=== PATIENT | male | born 1990 | race Caucasian/White ===

== ENCOUNTER 2017-02-20 21:39 | Emergency (ER) | payer BC, MEDICAID, OTHER ==
[2017-02-20] MEDS ORDERED: LORazepam 2 MG/ML SDV IVPUSH ONE (22:02)
[2017-02-20] MEDS ORDERED: Sodium Chloride 0.9% 10 ML Syringe FLUSH PRN (22:02)
--- NOTE | 2017-02-20 22:04 | EDM.PDOC ---
ED HPI GENERAL MEDICAL PROBLEM - General Chief Complaint: General Stated Complaint: chest pain sob Time Seen by Provider: 02/20/17 22:00 Source of Information: Reports: Patient, RN Notes Reviewed - History of Present Illness INITIAL COMMENTS - FREE TEXT/NARRATIVE: 26-year-old male presents to the ED with chest pain, palpitations upper abdominal discomfort. He states he smoked about 7 hits of meth this evening and is worried that it may have been laced with fentanyl or ketamine or something like that. He seems quite paranoid. He is afraid he is going to . He states a friend gave him some water to drink and it was "cloudy" so he is worried that there "could've been something in the water". He also did smoke some marijuana this evening. He has been binging on meth for about the last 4 days. He was able to finally get to sleep sometime early this past morning and then did sleep until about noon today. States she did not use any meth until about 7: 00 this evening which would be about 3 hours ago. He has not been vomiting. He denies injecting anything IV. He denies any alcohol intake. He does drink a lot of caffeine with soda and also energy drinks. chest Pain Score (Numeric/FACES): 5 - Related Data Allergies Allergy/AdvReac Type Severity Reaction Status Date / Time No Known Allergies Allergy Verified 02/20/17 21:49 Home Meds: Home Meds . [No Known Home Meds] 05/24/13 [History] Past Medical History - Past Health History Medical/Surgical History: Denies Medical/Surgical History Social & Family History - Family History Family Medical History: Noncontributory - Tobacco Use Smoking Status *Q: Current Every Day Smoker Years of Tobacco use: 5 Packs/Tins Daily: 0.5 Used Tobacco, but Quit: Yes Month Tobacco Last Used: unknown Second Hand Smoke Exposure: No - Caffeine Use Caffeine Use: Reports: Coffee, Soda - Alcohol Use Days Per Week of Alcohol Use: n,one - Recreational Drug Use Recreational Drug Use: Yes Drug Use in Last 12 Months: Yes Recreational Drug Type: Reports: Marijuana/Hashish, Methamphetamine Recreational Drug Use Frequency: Daily ED ROS GENERAL - Review of Systems Review Of Systems: See Below Constitutional: Denies: Fever, Chills, Diaphoresis HEENT: Denies: Throat Pain Respiratory: Denies: Shortness of Breath, Wheezing, Pleuritic Chest Pain Cardiovascular: Reports: Chest Pain (Chest feels tight) GI/Abdominal: Reports: Abdominal Pain (Upper mid abdomen). Denies: Nausea, Vomiting Skin: Denies: Rash Neurological: Reports: Dizziness (Mild) Psychiatric: Reports: Anxiety ED EXAM, GENERAL - Physical Exam Exam: See Below General Appearance: Alert, Anxious Eye Exam: Bilateral Eye: PERRL Throat/Mouth: Normal Inspection Neck: Supple Respiratory/Chest: No Respiratory Distress, Respiratory Distress (Mild tachypnea ) Cardiovascular: Tachycardia GI/Abdominal: Soft, Tender. No: Guarding, Rebound Back Exam: Normal Inspection Extremities: Normal Inspection, Normal Range of Motion Neurological: Alert, Oriented, No Motor/Sensory Deficits Psychiatric: Anxious Skin Exam: Warm, Dry, Normal Color Course - Vital Signs Last Recorded V/S: Last Vital Signs Temp 97.8 F 02/20/17 21:46 Pulse 123 H 02/20/17 21:46 Resp 24 H 02/20/17 21:46 BP 158/104 H 02/20/17 21:46 Pulse Ox 100 02/20/17 21:46 - Orders/Labs/Meds Orders: Active Orders 24 hr Category Date Time Status EKG 12 Lead [EKG Documentation Completion] [RC] STAT Care 02/20/17 22:01 Active Peripheral IV Care [RC] . DIRECTED Care 02/20/17 22:02 Active Sodium Chloride 0.9% [Normal Saline] 1,000 ml Med 02/20/17 22:15 Active IV ONETIME Sodium Chloride 0.9% [Normal Saline] 1,000 ml Med 02/21/17 00:05 Active IV ONETIME Sodium Chloride 0.9% [Saline Flush] Med 02/20/17 22:02 Active 10 ml FLUSH ASDIRECTED PRN Peripheral IV Insertion Adult [OM.PC] Stat Oth 02/20/17 22:02 Ordered Medication Orders Sodium Chloride (Normal Saline) 1,000 mls @ 999 mls/hr IV ONETIME [facility] Last Admin: 02/20/17 22:22 Dose: 999 mls/hr Sodium Chloride (Normal Saline) 1,000 mls @ 500 mls/hr IV ONETIME ONE Stop: 02/21/17 02:04 Last Admin: 02/21/17 00:10 Dose: 500 mls/hr Sodium Chloride (Saline Flush) 10 ml FLUSH ASDIRECTED PRN PRN Reason: Keep Vein Open Last Admin: 02/20/17 22:23 Dose: 10 ml Labs: Laboratory Tests 02/20/17 02/20/17 02/21/17 Range/Units 22:15 22:15 01:25 WBC 11.84 H (4.23-9.07) K/mm3 RBC 5.75 (4.63-6.08) M/mm3 Hgb 17.3 (13.7-17.5) gm/L Hct 49.5 (40.1-51.0) % MCV 86.1 (79.0-92.2) fl MCH 30.1 (25.7-32.2) pg MCHC 34.9 (32.2-35.5) g/dl RDW Std Deviation 39.8 (35.1-43.9) fL Plt Count 247 (163-337) K/mm3 MPV 9.7 (9.4-12.3) fl Neut % (Auto) 68.2 H (34.0-67.9) % Lymph % (Auto) 23.9 (21.8-53.1) % [place] % (Auto) 6.8 (5.3-12.2) % Eos % (Auto) 0.7 L (0.8-7.0) Baso % (Auto) 0.2 (0.1-1.2) % Neut # (Auto) 8.08 H (1.78-5.38) K/mm3 Lymph # (Auto) 2.83 (1.32-3.57) K/mm3 [place] # (Auto) 0.81 (0.30-0.82) K/mm3 Eos # (Auto) 0.08 (0.04-0.54) K/mm3 Baso # (Auto) 0.02 (0.01-0.08) K/mm3 Sodium 144 (136-145) mEq/L Potassium 3.5 (3.5-5.1) mEq/L Chloride 106 (98-107) mEq/L Carbon Dioxide 28 (21-32) mEq/L Anion Gap 13.5 (5-15) BUN 16 (7-18) mg/dL Creatinine 1.2 (0.7-1.3) mg/dL Est Cr Clr Drug Dosing 96.32 mL/min Estimated GFR (MDRD) > 60 (>60) mL/min BUN/Creatinine Ratio 13.3 L (14-18) Glucose 108 H (74-106) mg/dL Calcium 9.6 (8.5-10.1) mg/dL Total Bilirubin 0.5 (0.2-1.0) mg/dL AST 16 (15-37) U/L ALT 32 (16-63) U/L Alkaline Phosphatase 55 (46-116) U/L Total Protein 8.4 H (6.4-8.2) g/dl Albumin 4.5 (3.4-5.0) g/dl Globulin 3.9 gm/dL Albumin/Globulin Ratio 1.2 (1-2) Urine Opiates Screen Negative (NEGATIVE) Ur Buprenorphine Scrn Negative (NEGATIVE) Ur Oxycodone Screen Negative (NEGATIVE) Urine Methadone Screen Negative (NEGATIVE) Ur Propoxyphene Screen Negative (NEGATIVE) Ur Barbiturates Screen Negative (NEGATIVE) Ur Tricyclics Screen Negative (NEGATIVE) Ur Phencyclidine Scrn Negative (NEGATIVE) Ur Amphetamine Screen Presumptive positive H (NEGATIVE) U Methamphetamines Scrn Presumptive positive H (NEGATIVE) U Benzodiazepines Scrn Presumptive positive H (NEGATIVE) U Cocaine Metab Screen Negative (NEGATIVE) U Marijuana (THC) Screen Presumptive positive H (NEGATIVE) Ethyl Alcohol 0.00 (0.00) gm% Meds: Medications Generic Name Dose Route Start Last Admin Trade Name Freq PRN Reason Stop Dose Admin Sodium Chloride 1,000 mls @ 999 mls/hr 02/20/17 22:15 02/20/17 22:22 Normal Saline IV 999 mls/hr ONETIME CRISTINA Administration Sodium Chloride 1,000 mls @ 500 mls/hr 02/21/17 00:05 02/21/17 00:10 Normal Saline IV 02/21/17 02:04 500 mls/hr ONETIME ONE Administration Sodium Chloride 10 ml 02/20/17 22:02 02/20/17 22:23 Saline Flush FLUSH 10 ml ASDIRECTED PRN Administration Keep Vein Open Discontinued Medications Generic Name Dose Route Start Last Admin Trade Name Freq PRN Reason Stop Dose Admin Lorazepam 1 mg 02/20/17 22:02 02/20/17 22:22 Ativan IVPUSH 02/20/17 22:03 1 mg ONETIME ONE Administration - Re-Assessments/Exams Free Text/Narrative Re-Assessment/Exam: 02/21/17 02:00. Have been waiting for patient to void to obtain urine drug screen. He finally did void about 45 minutes ago. Urine drug screen is back positive for meth, amphetamines and marijuana and benzodiazepine as expected. He did start relaxing after we gave him Ativan 1 mg IV. He has been sleeping intermittently now for the past couple of hours. We've given 2 L of fluid IV. Heart rate has been running in the 90s most of the time and occasionally up into the low 100s. No ectopy. Other vitals have been stable. He is now been with us for observation and treatment for over 4 hours. Will discharge home at this time. Departure - Departure Time of Disposition: 02:00 Disposition: Home, Self-Care 01 Condition: Fair Clinical Impression: Atypical chest pain, Anxiety, Drug usage - Discharge Information Referrals: PCP,None [Primary Care Provider] - Forms: ED Department Discharge Additional Instructions: avoid further street drugs. Drink plenty of water to maintain hydration. Follow up [facility] if you decide to to obtain counseling help for stress, anxiety, or drug usage. Follow up clinic as needed, return to ED as needed. - My Orders Last 24 Hours: My Active Orders 02/20/17 22:01 EKG 12 Lead [EKG Documentation Completion] [RC] STAT 02/20/17 22:02 Peripheral IV Care [RC] . DIRECTED Sodium Chloride 0.9% [Saline Flush] 10 ml FLUSH ASDIRECTED PRN Peripheral IV Insertion Adult [OM.PC] Stat 02/20/17 22:15 Sodium Chloride 0.9% [Normal Saline] 1,000 ml IV ONETIME 02/21/17 00:05 Sodium Chloride 0.9% [Normal Saline] 1,000 ml IV ONETIME - Assessment/Plan Last 24 Hours: My Active Orders 02/20/17 22:01 EKG 12 Lead [EKG Documentation Completion] [RC] STAT 02/20/17 22:02 Peripheral IV Care [RC] . DIRECTED Sodium Chloride 0.9% [Saline Flush] 10 ml FLUSH ASDIRECTED PRN Peripheral IV Insertion Adult [OM.PC] Stat 02/20/17 22:15 Sodium Chloride 0.9% [Normal Saline] 1,000 ml IV ONETIME 02/21/17 00:05 Sodium Chloride 0.9% [Normal Saline] 1,000 ml IV ONETIME
[2017-02-20] MEDS ORDERED: Sodium Chloride 0.9% 1,000 ML IV SCH (22:15)
[2017-02-21] MEDS ORDERED: Sodium Chloride 0.9% 1,000 ML IV ONE (00:05)
[2017-02-21 02:22] VITALS: BP 128/75
== END 2017-02-21 02:10 | disposition home or self-care (01) ==
LOC: JD.ED 21:39
DX: F15.980 Other stimulant use, unspecified with stimulant-induced anxiety disorder (principal); R07.89 Other chest pain; F17.210 Nicotine dependence, cigarettes, uncomplicated
CPT/HCPCS: 36415; 80053; 80306; 85025; 93005; 96361; 96374; 99285; G0480; J2060; J7040; J7050; 99284

== ENCOUNTER 2017-03-23 12:42 | Emergency (ER) | payer SELFPAY ==
[2017-03-23 13:02] VITALS: BP 175/115
[2017-03-23] MEDS ORDERED: LORazepam 2 MG/ML MDV IVPUSH ONE (13:17)
--- NOTE | 2017-03-23 13:17 | EDM.PDOC ---
ED HPI GENERAL MEDICAL PROBLEM - General Chief Complaint: Chemical Exposure Stated Complaint: POSS. ANTIFREEZE INGESTION Time Seen by Provider: 03/23/17 13:17 Source of Information: Reports: Patient History Limitations: Reports: No Limitations - History of Present Illness INITIAL COMMENTS - FREE TEXT/NARRATIVE: 36-year-old male presents the ED concerned that he may have been accidentally poisoned by antifreeze. He states someone that he's been partying with may have had antifreeze in a Gatorade bottle. Is very worried and apprehensive that he might of accidentally been poisoned. If this occurred occurred about 48 hours ago. Patient states he's been on a methamphetamine binge for about 3 days. Last use was about 24 hours ago. He states he slept one night out of the last 4. He states he thinks he's been eating fairly well. Denies any nausea vomiting abdominal cramping pain. Patient is quite apprehensive that time of my exam. Onset: Unknown/Unsure (Possible ingestion 48 hours ago.) Onset Date: 03/21/17 (This occurred while high on methamphetamines.) Duration: Day(s): Location: Reports: Other Severity: Moderate (Feeling anxious at this time.) Improves with: Reports: None Worsens with: Reports: Other (Feels worsened by concerned that he may have been poisoned by) Context: Reports: Other (Possible accidental ingestion of antifreeze.). Denies : Activity, Exercise, Lifting, Sick Contact, Trauma Associated Symptoms: Reports: No Other Symptoms. Denies: Confusion, Chest Pain , Cough, cough w sputum, Diaphoresis, Fever/Chills, Headaches, Loss of Appetite , Malaise, Nausea/Vomiting, Rash, Seizure, Shortness of Breath, Syncope, Weakness Treatments [employer]ATOR: Reports: Other (see below) (None.) Chest Pain Score (Numeric/FACES): 3 - Related Data Allergies Allergy/AdvReac Type Severity Reaction Status Date / Time No Known Allergies Allergy Verified 03/23/17 12:58 Home Meds: Home Meds . [No Known Home Meds] 05/24/13 [History] Past Medical History - Past Health History Medical/Surgical History: Denies Medical/Surgical History Social & Family History - Family History Family Medical History: Noncontributory - Tobacco Use Smoking Status *Q: Current Every Day Smoker Years of Tobacco use: 5 Packs/Tins Daily: 0.5 Used Tobacco, but Quit: Yes Month Tobacco Last Used: unknown Second Hand Smoke Exposure: No - Caffeine Use Caffeine Use: Reports: Coffee, Soda - Alcohol Use Days Per Week of Alcohol Use: n,one - Recreational Drug Use Recreational Drug Use: Yes Drug Use in Last 12 Months: Yes Recreational Drug Type: Reports: Marijuana/Hashish, Methamphetamine (Admits to 3 day use of methamphetamines. Last use was about 24 hours ago) Recreational Drug Use Frequency: Daily ED ROS GENERAL - Review of Systems Review Of Systems: See Below Constitutional: Reports: Malaise, Weakness, Fatigue, Decreased Appetite, Weight Loss. Denies: Fever, Chills HEENT: Reports: No Symptoms Respiratory: Reports: No Symptoms Cardiovascular: Reports: Blood Pressure Problem (Blood pressure is elevated at the time of exam but not known to have hypertension), Palpitations (Times) Endocrine: Reports: Fatigue GI/Abdominal: Denies: Abdominal Pain, Anorexia, Black Stool, Bloody Stool, Constipation, Diarrhea, Decreased Appetite, Difficulty Swallowing, Distension, Flatus, Hematemesis, Hematochezia, Melena, Nausea, Stool Incontinence, Vomiting : Reports: No Symptoms Musculoskeletal: Reports: No Symptoms Skin: Reports: No Symptoms Neurological: Reports: No Symptoms Psychiatric: Reports: No Symptoms Hematologic/Lymphatic: Reports: No Symptoms Immunologic: Reports: No Symptoms ED EXAM, BURN/SMOKE INHALATION - Physical Exam Exam: See Below Exam Limited By: No Limitations General Appearance: Alert, WD/WN, Anxious (Obviously anxious but is able to answer all questions quite appropriately makes good eye contact. You can tell that he is under the influence of drugs.), Mild Distress Eye Exam: Bilateral Eye: Normal Inspection Mouth/Throat: Other (Tongue is mildly dry and coated. Teeth are in need of a dentist) Head: No Symptoms, Atraumatic Neck: No Symptoms Respiratory: Lungs Clear, Normal Breath Sounds, No Accessory Muscle Use, Chest Non-Tender (Mildly tachypnea could rest 20-22/m), Decreased Breath Sounds Cardiovascular: No Edema (Mildly tachycardic at rest 114-1 20/m.), No Gallop, No Murmur, No Rub, Tachycardia Peripheral Pulses: 3+: Posterior Tibial (L), Posterior Tibial (R), Dorsalis Pedis (L), Dorsalis Pedis (R) GI/Abdominal: Normal Bowel Sounds, Soft, Non-Tender, No Organomegaly, No Abnormal Bruit, No Mass, Other (No scars.) (Male) Exam: No Hernia Extremities: Normal Inspection, Normal Range of Motion, Non-Tender, No Pedal Edema Neurological: Alert, Oriented, CN II-XII Intact, Normal Cognition, Normal Gait, No Motor/Sensory Deficits Psychiatric: Normal Affect, Normal Mood Skin Exam: Warm, Dry, Intact, Normal Color, No Rash Course - Vital Signs Last Recorded V/S: Last Vital Signs Temp 36.3 C 03/23/17 12:58 Pulse 114 H 03/23/17 12:58 Resp 20 03/23/17 12:58 BP 175/115 H 03/23/17 12:58 Pulse Ox 100 03/23/17 12:58 - Orders/Labs/Meds Labs: Laboratory Tests 03/23/17 03/23/17 03/23/17 Range/Units 13:14 13:14 14:15 WBC 7.54 (4.23-9.07) K/mm3 RBC 5.24 (4.63-6.08) M/mm3 Hgb 15.9 (13.7-17.5) gm/L Hct 44.8 (40.1-51.0) % MCV 85.5 (79.0-92.2) fl MCH 30.3 (25.7-32.2) pg MCHC 35.5 (32.2-35.5) g/dl RDW Std Deviation 37.8 (35.1-43.9) fL Plt Count 203 (163-337) K/mm3 MPV 10.5 (9.4-12.3) fl Neutrophils % (Manual) 62 H (40-60) % Band Neutrophils % 0 (0-10) % Lymphocytes % (Manual) 36 (20-40) % Atypical Lymphs % 0 % Monocytes % (Manual) 2 (2-10) % Eosinophils % (Manual) 0 L (0.8-7.0) % Basophils % (Manual) 0 L (0.2-1.2) Platelet Estimate Adequate RBC Morph Comment Normal Sodium 141 (136-145) mEq/L Potassium 3.5 (3.5-5.1) mEq/L Chloride 104 (98-107) mEq/L Carbon Dioxide 26 (21-32) mEq/L Anion Gap 14.5 (5-15) BUN 16 (7-18) mg/dL Creatinine 1.2 (0.7-1.3) mg/dL Est Cr Clr Drug Dosing 99.35 mL/min Estimated GFR (MDRD) > 60 (>60) mL/min BUN/Creatinine Ratio 13.3 L (14-18) Glucose 95 (74-106) mg/dL Calcium 9.6 (8.5-10.1) mg/dL Total Bilirubin 0.4 (0.2-1.0) mg/dL AST 18 (15-37) U/L ALT 29 (16-63) U/L Alkaline Phosphatase 49 (46-116) U/L Total Protein 8.0 (6.4-8.2) g/dl Albumin 4.4 (3.4-5.0) g/dl Globulin 3.6 gm/dL Albumin/Globulin Ratio 1.2 (1-2) Urine Color Yellow (Yellow) Urine Appearance Clear (Clear) Urine pH 7.0 (5.0-8.0) Ur Specific [place] 1.015 (1.005-1.030) Urine Protein Negative (Negative) Urine Glucose (UA) Negative (Negative) Urine Ketones Negative (Negative) Urine Occult Blood Negative (Negative) Urine Nitrite Negative (Negative) Urine Bilirubin Negative (Negative) Urine Urobilinogen 0.2 (0.2-1.0) Ur Leukocyte Esterase Negative (Negative) Urine RBC Not seen (0-5) /hpf Urine WBC Not seen (0-5) /hpf Ur Epithelial Cells Not seen (0-5) /hpf Urine Bacteria Not seen (FEW) /hpf Urine Mucus Not seen (FEW) /hpf Urine Opiates Screen (NEGATIVE) Ur Buprenorphine Scrn (NEGATIVE) Ur Oxycodone Screen (NEGATIVE) Urine Methadone Screen (NEGATIVE) Ur Propoxyphene Screen (NEGATIVE) Ur Barbiturates Screen (NEGATIVE) Ur Tricyclics Screen (NEGATIVE) Ur Phencyclidine Scrn (NEGATIVE) Ur Amphetamine Screen (NEGATIVE) U Methamphetamines Scrn (NEGATIVE) U Benzodiazepines Scrn (NEGATIVE) U Cocaine Metab Screen (NEGATIVE) U Marijuana (THC) Screen (NEGATIVE) 03/23/17 Range/Units 14:15 WBC (4.23-9.07) K/mm3 RBC (4.63-6.08) M/mm3 Hgb (13.7-17.5) gm/L Hct (40.1-51.0) % MCV (79.0-92.2) fl MCH (25.7-32.2) pg MCHC (32.2-35.5) g/dl RDW Std Deviation (35.1-43.9) fL Plt Count (163-337) K/mm3 MPV (9.4-12.3) fl Neutrophils % (Manual) (40-60) % Band Neutrophils % (0-10) % Lymphocytes % (Manual) (20-40) % Atypical Lymphs % % Monocytes % (Manual) (2-10) % Eosinophils % (Manual) (0.8-7.0) % Basophils % (Manual) (0.2-1.2) Platelet Estimate RBC Morph Comment Sodium (136-145) mEq/L Potassium (3.5-5.1) mEq/L Chloride (98-107) mEq/L Carbon Dioxide (21-32) mEq/L Anion Gap (5-15) BUN (7-18) mg/dL Creatinine (0.7-1.3) mg/dL Est Cr Clr Drug Dosing mL/min Estimated GFR (MDRD) (>60) mL/min BUN/Creatinine Ratio (14-18) Glucose (74-106) mg/dL Calcium (8.5-10.1) mg/dL Total Bilirubin (0.2-1.0) mg/dL AST (15-37) U/L ALT (16-63) U/L Alkaline Phosphatase (46-116) U/L Total Protein (6.4-8.2) g/dl Albumin (3.4-5.0) g/dl Globulin gm/dL Albumin/Globulin Ratio (1-2) Urine Color (Yellow) Urine Appearance (Clear) Urine pH (5.0-8.0) Ur Specific [place] (1.005-1.030) Urine Protein (Negative) Urine Glucose (UA) (Negative) Urine Ketones (Negative) Urine Occult Blood (Negative) Urine Nitrite (Negative) Urine Bilirubin (Negative) Urine Urobilinogen (0.2-1.0) Ur Leukocyte Esterase (Negative) Urine RBC (0-5) /hpf Urine WBC (0-5) /hpf Ur Epithelial Cells (0-5) /hpf Urine Bacteria (FEW) /hpf Urine Mucus (FEW) /hpf Urine Opiates Screen Negative (NEGATIVE) Ur Buprenorphine Scrn Negative (NEGATIVE) Ur Oxycodone Screen Negative (NEGATIVE) Urine Methadone Screen Negative (NEGATIVE) Ur Propoxyphene Screen Negative (NEGATIVE) Ur Barbiturates Screen Negative (NEGATIVE) Ur Tricyclics Screen Negative (NEGATIVE) Ur Phencyclidine Scrn Negative (NEGATIVE) Ur Amphetamine Screen Presumptive positive H (NEGATIVE) U Methamphetamines Scrn Presumptive positive H (NEGATIVE) U Benzodiazepines Scrn Negative (NEGATIVE) U Cocaine Metab Screen Negative (NEGATIVE) U Marijuana (THC) Screen Presumptive positive H (NEGATIVE) Meds: Medications Discontinued Medications Generic Name Dose Route Start Last Admin Trade Name Freq PRN Reason Stop Dose Admin Dextrose/Sodium Chloride 1,000 mls @ 999 mls/hr 03/23/17 13:30 03/23/17 13:34 Dextrose 5%-Normal Saline IV 999 mls/hr ASDIRECTED CRISTINA Administration Lorazepam 1.5 mg 03/23/17 13:17 03/23/17 13:52 Ativan IVPUSH 03/23/17 13:18 Not Given ONETIME ONE - Radiology Interpretation Free Text/Narrative:: 26-year-old male presents the ED with concerns he may have been accidentally poisoned by ethylene glycol. He states that apparently was in some Gatorade bottles that were at his friend's house . He has been using a lot of methamphetamines over the last 3-4 days with last use 24 hours ago. Came to his attention that he may have been accidentally poisoned by this medication is very anxious in this regard. He has no abdominal pain no nausea or vomiting which would occurred if he had significant ingestion. Patient is still under the influence of methamphetamine with essential tremor and signs of anxiety with tachycardia at rest and mild hyperventilation. Examination was otherwise normal. Plan IV D5 normal saline at open since I don't when he ate last. He will be given Ativan 1.5 mg IV. She labs will be collected to rule out a metabolic acidosis and urine will be collected for urate crystals which would show. He had significant ingestion of antifreeze. Time is seems highly unlikely. - Re-Assessments/Exams Free Text/Narrative Re-Assessment/Exam: 03/23/17 13:41 18 spoke to the patient he felt initially that Ativan might be a good idea to help bring resolve some of his anxiety symptoms however when it was prepped and offered to him he refused the Ativan at this time. 03/23/17 13:59 Labs reveal a white count of 7.54. Differential pending hemoglobin is good at 15.9 with hematocrit of 44.8. Blood count is 203,000. Sodium is 141 potassium low-normal at 3.5. Chloride 14 bicarbonate 26. And a gap is 14.5 normal. BUN is 16 creatinine is 1.2. Cesar is 95. Calcium is normal at 9.6. Total bilirubin normal at 0.4. AST is 18 with an ALT of 29. Total protein is 8.0 albumin fraction is good at 4.4. Urinalysis is pending 03/23/17 14:40 urinalysis is back and is completely within normal limits. There is no evidence that he has been exposed to anti freeze in the last week. Urine is positive for methamphetamines, amphetamines and marijuana. I suspect his mild paranoia secondary to use of amphetamines. Departure - Departure Time of Disposition: 14:40 Disposition: Home, Self-Care 01 Condition: Fair Clinical Impression: Methamphetamine abuse - Discharge Information Instructions: Stimulant Use Disorder-Methamphetamines Referrals: PCP,None [Primary Care Provider] - Forms: ED Department Discharge Additional Instructions: Evaluation in the emergency room today in effort to rule out any potential exposure to ethalyne glycol in the last few days that may have occurred as part of accidental ingestion. The lab work reveals no evidence of a metabolic acidosis and normal kidney function . Also urinalysis is negative for urate crystals which show up in the urine when you have ingested ethylene glycol. Therefore there is no evidence of antifreeze ingestion at all. Urine is positive for methamphetamines and marijuana which he admitted to using over the last several days. Unfortunately methamphetamine sometimes will cause a degree of paranoia which appears to be the case today.
[2017-03-23] MEDS ORDERED: Dextrose 5%-0.9% NaCl 1,000 ML IV SCH (13:30)
== END 2017-03-23 14:56 | disposition home or self-care (01) ==
LOC: JD.ED 12:42
DX: F15.10 Other stimulant abuse, uncomplicated (principal); F17.210 Nicotine dependence, cigarettes, uncomplicated
CPT/HCPCS: 36415; 80053; 80306; 81001; 85025; 96360; 99285; J7042

== ENCOUNTER 2017-04-12 18:59 | Emergency (ER) | payer BC, MEDICAID, OTHER ==
--- NOTE | 2017-04-12 19:53 | EDM.PDOCBH ---
ED HPI GENERAL MEDICAL PROBLEM - General Chief Complaint: Drug or Alcohol Abuse Stated Complaint: NANCY CALLED ON HIM Time Seen by Provider: 04/12/17 19:45 Source of Information: Reports: Patient History Limitations: Reports: No Limitations - History of Present Illness INITIAL COMMENTS - FREE TEXT/NARRATIVE: The patient was sent here by Nancy for medical clearance to go to the [facility]. He is addicted to meth and he last used 12 hours ago and he is looking for help. He says he feels a little anxious. He has no thoughts of hurting himself or anyone else. He has no headache, chest pain, shortness of breath, nausea or vomiting. Onset: Gradual Duration: Hour(s): (12) Severity: Mild Improves with: Reports: None Worsens with: Reports: None Associated Symptoms: Reports: No Other Symptoms - Related Data Allergies Allergy/AdvReac Type Severity Reaction Status Date / Time No Known Allergies Allergy Verified 04/12/17 19:37 Home Meds: Home Meds LORazepam [Ativan] 1 mg PO Q8HR #10 tablet 04/12/17 [Rx] Past Medical History - Past Health History Medical/Surgical History: Denies Medical/Surgical History Psychiatric History: Reports: Addiction Social & Family History - Family History Family Medical History: Noncontributory - Tobacco Use Smoking Status *Q: Current Every Day Smoker Years of Tobacco use: 5 Packs/Tins Daily: 0.5 Used Tobacco, but Quit: Yes Month Tobacco Last Used: unknown Second Hand Smoke Exposure: No - Caffeine Use Caffeine Use: Reports: Coffee, Soda - Alcohol Use Days Per Week of Alcohol Use: n,one - Recreational Drug Use Recreational Drug Use: Yes Drug Use in Last 12 Months: Yes Recreational Drug Type: Reports: Marijuana/Hashish, Methamphetamine (Admits to 3 day use of methamphetamines. Last use was about 24 hours ago) Recreational Drug Use Frequency: Daily ED ROS GENERAL - Review of Systems Review Of Systems: See Below Constitutional: Reports: No Symptoms HEENT: Reports: No Symptoms Respiratory: Reports: No Symptoms Cardiovascular: Reports: No Symptoms Endocrine: Reports: No Symptoms GI/Abdominal: Reports: No Symptoms : Reports: No Symptoms Musculoskeletal: Reports: No Symptoms Skin: Reports: No Symptoms Psychiatric: Reports: Anxiety ED EXAM, BEHAVIORAL HEALTH - Physical Exam Exam: See Below Exam Limited By: No Limitations General Appearance: Alert, No Apparent Distress Ears: Normal External Exam Nose: Normal Inspection Head: Atraumatic, Normocephalic Neck: Normal Inspection Respiratory/Chest: No Respiratory Distress, Lungs Clear, Normal Breath Sounds Cardiovascular: Regular Rate, Rhythm, No Edema, No Murmur GI/Abdominal: Soft, Non-Tender, No Organomegaly, No Mass Back Exam: Normal Inspection Extremities: Normal Inspection COURSE, BEHAVIORAL HEALTH COMP - Course Vital Signs: Last Vital Signs Temp 97.7 F 04/12/17 19:34 Pulse 114 H 04/12/17 19:34 Resp 16 04/12/17 19:34 BP 152/100 H 04/12/17 19:34 Pulse Ox 98 04/12/17 19:34 Orders, Labs, Meds: Active Orders 24 hr Category Date Time Status Cardiac Monitoring [RC] . DIRECTED Care 04/12/17 19:50 Active Laboratory Tests 04/12/17 04/12/17 04/12/17 Range/Units 20:05 20:35 20:35 WBC 8.74 (4.23-9.07) K/mm3 RBC 5.58 (4.63-6.08) M/mm3 Hgb 16.7 (13.7-17.5) gm/L Hct 45.9 (40.1-51.0) % MCV 82.3 (79.0-92.2) fl MCH 29.9 (25.7-32.2) pg MCHC 36.4 H (32.2-35.5) g/dl RDW Std Deviation 37.5 (35.1-43.9) fL Plt Count 245 (163-337) K/mm3 MPV 9.7 (9.4-12.3) fl Neut % (Auto) 68.0 H (34.0-67.9) % Lymph % (Auto) 25.7 (21.8-53.1) % [place] % (Auto) 5.7 (5.3-12.2) % Eos % (Auto) 0.3 L (0.8-7.0) Baso % (Auto) 0.2 (0.1-1.2) % Neut # (Auto) 5.93 H (1.78-5.38) K/mm3 Lymph # (Auto) 2.25 (1.32-3.57) K/mm3 [place] # (Auto) 0.50 (0.30-0.82) K/mm3 Eos # (Auto) 0.03 L (0.04-0.54) K/mm3 Baso # (Auto) 0.02 (0.01-0.08) K/mm3 Sodium 140 (136-145) mEq/L Potassium 3.9 (3.5-5.1) mEq/L Chloride 104 (98-107) mEq/L Carbon Dioxide 26 (21-32) mEq/L Anion Gap 13.9 (5-15) BUN 13 (7-18) mg/dL Creatinine 1.1 (0.7-1.3) mg/dL Est Cr Clr Drug Dosing 111.70 mL/min Estimated GFR (MDRD) > 60 (>60) mL/min BUN/Creatinine Ratio 11.8 L (14-18) Glucose 87 (74-106) mg/dL Calcium 9.8 (8.5-10.1) mg/dL Total Bilirubin 0.9 (0.2-1.0) mg/dL AST 14 L (15-37) U/L ALT 23 (16-63) U/L Alkaline Phosphatase 57 (46-116) U/L Total Protein 7.8 (6.4-8.2) g/dl Albumin 4.3 (3.4-5.0) g/dl Globulin 3.5 gm/dL Albumin/Globulin Ratio 1.2 (1-2) TSH 3rd Generation 0.598 (0.358-3.74) uIU/mL Urine Opiates Screen Negative (NEGATIVE) Ur Buprenorphine Scrn Negative (NEGATIVE) Ur Oxycodone Screen Negative (NEGATIVE) Urine Methadone Screen Negative (NEGATIVE) Ur Propoxyphene Screen Negative (NEGATIVE) Ur Barbiturates Screen Negative (NEGATIVE) Ur Tricyclics Screen Negative (NEGATIVE) Ur Phencyclidine Scrn Negative (NEGATIVE) Ur Amphetamine Screen Presumptive positive H (NEGATIVE) U Methamphetamines Scrn Presumptive positive H (NEGATIVE) U Benzodiazepines Scrn Negative (NEGATIVE) U Cocaine Metab Screen Negative (NEGATIVE) U Marijuana (THC) Screen Presumptive positive H (NEGATIVE) Ethyl Alcohol 0.00 (0.00) gm% Medications Discontinued Medications Generic Name Dose Route Start Last Admin Trade Name Freq PRN Reason Stop Dose Admin Lorazepam 1 mg 04/12/17 20:04 04/12/17 20:08 Ativan PO 04/12/17 20:05 1 mg ONETIME ONE Administration Re-Assessment/Re-Exam: I will get some labs. His CBC and CMP look good. His TSH is negative. His alcohol is zero. His UDS is presumptive positive for methamphetamines, amphetamines and maijuana. He feels anxious so I gave him some ativan. I will write him a prescription and have orders for ativan 1mg every 8 hours for 10 doses. I called Katerina with Nancy and she will arrange transport to the [facility]. Departure - Departure Time of Disposition: 21:20 Disposition: Home, Self-Care 01 Condition: Good Clinical Impression: Anxiety, Drug usage, Methamphetamine abuse - Discharge Information Prescriptions: LORazepam [Ativan] 1 mg PO Q8HR #10 tablet Referrals: PCP,None [Primary Care Provider] - Additional Instructions: Take the ativan 1mg every 8 hours. Nancy will take you to the [facility]. Please return if you are worse. - My Orders Last 24 Hours: My Active Orders 04/12/17 19:50 Cardiac Monitoring [RC] . DIRECTED - Assessment/Plan Last 24 Hours: My Active Orders 04/12/17 19:50 Cardiac Monitoring [RC] . DIRECTED
[2017-04-12] MEDS ORDERED: LORazepam 1 MG Tab PO ONE (20:04)
[2017-04-12 21:29] VITALS: BP 130/91
== END 2017-04-12 21:35 | disposition home or self-care (01) ==
LOC: JD.ED 18:59
DX: F41.9 Anxiety disorder, unspecified (principal); F15.10 Other stimulant abuse, uncomplicated; F19.90 Other psychoactive substance use, unspecified, uncomplicated; F17.210 Nicotine dependence, cigarettes, uncomplicated
CPT/HCPCS: 36415; 80053; 80306; 84443; 85025; 99283; A9270; G0480; 99284

== ENCOUNTER 2019-03-02 08:52 | Emergency (ER) | payer MEDICAID ==
[2019-03-02 09:03] VITALS: BP 145/93; PULSE 72
--- NOTE | 2019-03-02 09:37 | EDM.PDOC ---
ED HPI GENERAL MEDICAL PROBLEM - General Chief Complaint: Upper Extremity Injury/Pain Stated Complaint: RT WRIST INJURY Time Seen by Provider: 03/02/19 09:02 Source of Information: Reports: Patient History Limitations: Reports: No Limitations - History of Present Illness INITIAL COMMENTS - FREE TEXT/NARRATIVE: Patient is a 28-year-old male who presents with pain and swelling to the radial aspect of the right distal forearm and wrist that started about 4 days ago. 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 He has no previous injury to the wrist. States he has been using ibuprofen for pain and icing intermittently. Pain worsens significantly with any movement of the wrist. Treatments [employer]: Reports: NSAIDS Right Wrist Pain Score (Numeric/FACES): 7 - Related Data Allergies Allergy/AdvReac Type Severity Reaction Status Date / Time No Known Allergies Allergy Verified 03/02/19 09:03 Home Meds: Home Meds Naproxen [Naprosyn] 500 mg PO Q12HR 10 Days #20 tab 03/02/19 [Rx] Past Medical History - Past Health History Medical/Surgical History: Denies Medical/Surgical History Psychiatric History: Reports: Addiction Social & Family History - Family History Family Medical History: Noncontributory - Tobacco Use Smoking Status *Q: Current Every Day Smoker Years of Tobacco use: 10 Packs/Tins Daily: 0.2 - Caffeine Use Caffeine Use: Reports: Coffee, Energy Drinks, Soda, Tea - Recreational Drug Use Recreational Drug Use: Yes Drug Use in Last 12 Months: Yes Recreational Drug Type: Reports: Marijuana/Hashish Review of Systems - Review of Systems Review Of Systems: Comprehensive ROS is negative, except as noted in HPI. ED EXAM, GENERAL - Physical Exam Exam: See Below Exam Limited By: No Limitations General Appearance: Alert, WD/WN, No Apparent Distress Respiratory/Chest: No Respiratory Distress, Lungs Clear, Normal Breath Sounds, No Accessory Muscle Use, Chest Non-Tender Cardiovascular: Normal Peripheral Pulses, Regular Rate, Rhythm, No Edema, No Gallop, No JVD, No Murmur, No Rub Extremities: Other (tenderness and swelling to radial aspect of the right distal forearm and wrist. Positive Sarahi maneuver. A grinding sensation is palpable over the radial aspect of the right distal forearm with movement of the wrist.) Neurological: Alert, Oriented, CN II-XII Intact, Normal Cognition, Normal Gait, Normal Reflexes, No Motor/Sensory Deficits Psychiatric: Normal Affect, Normal Mood Skin Exam: Warm, Dry, Intact, Normal Color, No Rash Course - Vital Signs Last Recorded V/S: Last Vital Signs Temp 98.0 F 03/02/19 08:59 Pulse 72 03/02/19 08:59 Resp 16 03/02/19 08:59 BP 145/93 H 03/02/19 08:59 Pulse Ox 98 03/02/19 08:59 - Orders/Labs/Meds Orders: Active Orders 24 hr Category Date Time Status Wrist Comp Min 3V Rt [CR] Stat Exams 03/02/19 09:04 Taken DME for Discharge [COMM] Routine Oth 03/02/19 09:40 Ordered - Re-Assessments/Exams Free Text/Narrative Re-Assessment/Exam: 03/02/19 09:33 There are no bony abnormalities noted to the x-ray of the right wrist. The patient is likely suffering from de Quervain's tendinitis. We will provide him with a thumb spica splint as well as prescription for Naprosyn with instructions to ice intermittently. Patient states that there are functions he can do at his job that he does not have to do repetitive motions of the wrist so he will not need a note off from work. I did discuss with the patient if he is not having improvement within the next 10 days, he should call to schedule an appointment with orthopedics. Departure - Departure Time of Disposition: 09:37 Disposition: Home, Self-Care 01 Condition: Fair Clinical Impression: De Quervain's disease (tenosynovitis) - Discharge Information *PRESCRIPTION DRUG MONITORING PROGRAM REVIEWED*: No *COPY OF PRESCRIPTION DRUG MONITORING REPORT IN PATIENT RONI: No Prescriptions: Naproxen [Naprosyn] 500 mg PO Q12HR 10 Days #20 tab Instructions: De Quervain Tenosynovitis Referrals: PCP,None [Primary Care Provider] - Cruz Pelletier MD [Physician] - Forms: ED Department Discharge Additional Instructions: You were seen in the emergency Department today for right wrist pain. X-rays were done and showed no fracture of the area. It is likely that you are suffering from de Quervain's tendinitis which is and inflammation of the tendons in your distal forearm and wrist. Treatment for this as immobilization of the wrist, NSAIDs, and intermittent ice. Been provided with a wrist splint. Wear this for comfort especially when working. A prescription for Naprosyn is been sent to [facility] [place]. Take this twice daily for 10 days to help reduce the inflammation and treat the pain. I also recommend that you ice the area intermittently. You may continue to work, however I do recommend that you avoid activities that cause repetitive use of the wrist as this will further aggravate your symptoms. If you are seeing significant improvement within the next 10 days, please call to schedule an appointment with orthopedist, Dr. Pelletier. His number is listed below on this discharge page. If you experience any new or worsening symptoms of concern, please do not hesitate to return to the emergency department. Sepsis Event Note - Evaluation Sepsis Screening Result: No Definite Risk - Focused Exam Vital Signs: Vital Signs Temp Pulse Resp BP Pulse Ox 03/02/19 08:59 98.0 F 72 16 145/93 H 98 Date Exam was Performed: 03/02/19 Time Exam was Performed: 10:57 - My Orders Last 24 Hours: My Active Orders 03/02/19 09:04 Wrist Comp Min 3V Rt [CR] Stat 03/02/19 09:40 DME for Discharge [COMM] Routine - Assessment/Plan Last 24 Hours: My Active Orders 03/02/19 09:04 Wrist Comp Min 3V Rt [CR] Stat 03/02/19 09:40 DME for Discharge [COMM] Routine
--- NOTE | 2019-03-02 13:17 | CR ---
Right wrist: 4 views the right wrist were obtained. Comparison: No previous right wrist exam. Joint spaces are preserved. No fracture, dislocation or other bony abnormality is appreciated. Impression: 1. No abnormality is identified on right wrist exam. Diagnostic code #1 Study was dictated in [place] Standard Time
== END 2019-03-02 10:00 | disposition home or self-care (01) ==
LOC: JD.ED 08:52
DX: M65.4 Radial styloid tenosynovitis [de Quervain] (principal); F17.210 Nicotine dependence, cigarettes, uncomplicated
CPT/HCPCS: 29125; 73110-26-RT; 73110-RT; 99282-25; 99283

== ENCOUNTER 2021-03-23 12:43 | Emergency (ER) | payer MEDICAID ==
[2021-03-23] MEDS: Sodium Chloride 0.9% 10 ML Syringe FLUSH PRN (13:05)
[2021-03-23 16:03] VITALS: BP 126/62; PULSE 62
== END 2021-03-23 15:50 | disposition home or self-care (01) ==
LOC: JD.ED 12:43
DX: R07.89 Other chest pain (principal); J45.909 Unspecified asthma, uncomplicated; Z72.0 Tobacco use
CPT/HCPCS: 36415; 71045; 71045-26; 80053; 83735; 84484; 85025; 85379; 85610; 93005; 99285-25

== ENCOUNTER 2023-05-01 12:52 | Emergency (ER) | payer MEDICAID ==
[2023-05-01] MEDS: Lidocaine 1% 10 ML MDV INJECT ONE (13:26)
[2023-05-01] MEDS: Bupivacaine 0.25% 10 ML SDV INJECT ONE (14:09)
[2023-05-01] MEDS: Bupivacaine 0.5% 10 ML SDV ONE (14:10)
[2023-05-01 14:41] VITALS: BP 125/78; PULSE 79
== END 2023-05-01 14:40 | disposition home or self-care (01) ==
LOC: JD.ED 12:52
DX: S62.635A Displaced fracture of distal phalanx of left ring finger, initial encounter for closed fracture (principal); S61.213A Laceration without foreign body of left middle finger without damage to nail, initial encounter; F17.210 Nicotine dependence, cigarettes, uncomplicated; W26.8XXA Contact with other sharp object(s), not elsewhere classified, initial encounter; Y93.89 Activity, other specified
CPT/HCPCS: 12002; 73140; 99283; J0665; J3490